=== PATIENT | female | born 2000 | race African-American/Black ===

== ENCOUNTER 2022-02-13 23:25 | Emergency (ER) | payer MEDICAID ==
[~2022-02-13] VITALS: Ht 154.9 cm; Wt 55.0 kg
[2022-02-14] MEDS ORDERED: ACETAMINOPHEN 325MG TABLET PO ONE (05:45)
[2022-02-14 09:52] LABS: CLARITY URINE CLOUDY (CLEAR); COLOR URINE YELLOW (YELLOW); KETONES URINE TRACE (NEGATIVE); LEUKOCYTE ESTERASE URINE 2+ (NEGATIVE); NITRITE URINE NEGATIVE (NEGATIVE); OCCULT BLOOD URINE 3+ (NEGATIVE); PROTEIN URINE 1+ (NEGATIVE); SPECIFIC GRAVITY URINE 1.025 (1.005-1.030)
[2022-02-14] MEDS ORDERED: CEPH250C2 MT (10:10)
[2022-02-14 10:17] VITALS: BP 113/68
== END 2022-02-14 10:32 | disposition home or self-care (01) ==
LOC: ER 23:25
DX: N39.0 Urinary tract infection, site not specified (principal)
CPT/HCPCS: 76830; 76856; 81003; 81025; 99284